=== PATIENT | female | born 1980 | race African-American/Black ===

== ENCOUNTER 2023-08-27 09:04 | Emergency (ER) | payer MEDICAID ==
[~2023-08-27] VITALS: Ht 177.8 cm; Wt 85.0 kg
[2023-08-27 09:09] VITALS: O2SAT 100
[2023-08-27] MEDS ORDERED: METH-653 MT (09:34)
[2023-08-27] MEDS: IBUPROFEN 600MG TABLET PO ONE (09:43)
[2023-08-27 11:32] VITALS: BP 176/106; PULSE 73; RESP 16; TEMP 98.4
== END 2023-08-27 12:36 | disposition home or self-care (01) ==
LOC: ER 09:04
DX: M54.50 Low back pain, unspecified (principal); M25.571 Pain in right ankle and joints of right foot; V98.8XXA Other specified transport accidents, initial encounter; Y93.89 Activity, other specified; Y92.89 Other specified places as the place of occurrence of the external cause; Y99.8 Other external cause status
CPT/HCPCS: 72100; 73610; 81025; 99284